=== PATIENT | male | born 1980 | race Caucasian/White ===

== ENCOUNTER → 2020-07-23 | Outpatient (CLI) | payer OTHER ==
[~2020-07-23] MED LIST: APIDRA100 UNIT/1 SQ; ASPIR 8181 MG PO; BASAGLAR SC; COLACE 100MG C100 MG PO; CRESTOR40 MG PO; EUTHYROX75 MCG PO; FENOFIBRATE160 MG PO; FLEXERIL PO; GLUCOPHAGE1000 MG PO; IBU800 MG PO; ISOSORBIDE MONO30 MG PO; JARDIANCE10 MG PO; KLOR-CON 1010 MEQ PO; LANTUS SOL100 UNIT/1 SC; LASIX20 MG PO; LEVOTHYROXINE50 MCG PO; LOPRESSOR 50 MG50 MG PO; METOPROLOL TART25 MG PO; NITROSTAT0.4 MG SL; OMEPRAZOLE20 M1 PO; PLAVIX 75 MG TA75 MG PO; PRILOSEC OTC20 MG PO; ZESTRIL5 MG PO
== END ==
LOC: EXRD 07-21 10:00
DX: R10.13 Epigastric pain (principal); K76.0 Fatty (change of) liver, not elsewhere classified
CPT/HCPCS: 76705

== ENCOUNTER → 2020-09-02 | Day surgery (SDC) | payer OTHER | END | disposition home or self-care (01) | LOC: OR 08:03 | DX: K29.50 Unspecified chronic gastritis without bleeding (principal); K21.00 Gastro-esophageal reflux disease with esophagitis, without bleeding; K64.0 First degree hemorrhoids; I10 Essential (primary) hypertension; E11.9 Type 2 diabetes mellitus without complications; E78.5 Hyperlipidemia, unspecified; E66.01 Morbid (severe) obesity due to excess calories; E03.9 Hypothyroidism, unspecified | CPT/HCPCS: 82962; J2405; J2704; J7040 ==

== ENCOUNTER 2021-05-10 21:52 | Emergency (ER) | payer OTHER ==
[2021-05-10 22:25] LABS: HEMOGLOBIN 14.4 gm/dl (14.0-17.5); RED BLOOD COUNT 4.9 M/UL (4.20-5.50); WHITE BLOOD COUNT 13.5 K/UL (4.5-11.0)
[2021-05-10 23:17] LABS: BUN/CREATININE RATIO 22 (0-10)
== END 2021-05-11 03:17 | disposition home or self-care (01) ==
LOC: ER1 21:52
PROVIDERS: Nurse Practitioner
DX: R07.9 Chest pain, unspecified (principal); K42.9 Umbilical hernia without obstruction or gangrene; E11.9 Type 2 diabetes mellitus without complications; E78.5 Hyperlipidemia, unspecified; I10 Essential (primary) hypertension; Z79.82 Long term (current) use of aspirin
CPT/HCPCS: 71045; 80053; 82550; 82553; 83874; 84484; 85025; 85610; 93005; 99285; Q9967